=== PATIENT | male | born 1965 | race Two or more races ===

== ENCOUNTER 2020-02-02 15:39 | Emergency (ER) | payer OTHER ==
[~2020-02-02] VITALS: Ht 167.6 cm; Wt 81.6 kg
[2020-02-02] MEDS ORDERED: BACITRACIN TOP OINT 1 UD PKG TOP ONE (18:15)
[2020-02-02 18:46] VITALS: BP 151/93
== END 2020-02-02 19:00 | disposition home or self-care (01) ==
LOC: ER 15:39
DX: S01.411A Laceration without foreign body of right cheek and temporomandibular area, initial encounter (principal); M48.02 Spinal stenosis, cervical region; H66.91 Otitis media, unspecified, right ear; I10 Essential (primary) hypertension; W22.8XXA Striking against or struck by other objects, initial encounter; Y93.89 Activity, other specified; Y92.89 Other specified places as the place of occurrence of the external cause; Y99.0 Civilian activity done for income or pay
CPT/HCPCS: 70450; 70486; 72125